=== PATIENT | female | born 1990 | race Caucasian/White ===

== ENCOUNTER → 2022-07-26 | Outpatient (CLI) | payer OTHER ==
--- NOTE | 2022-07-27 06:00 | MR ---
EXAMINATION TYPE: MR ankle RT wo con DATE OF EXAM: 07/26/2022 COMPARISON: None HISTORY: Pain Multiplanar multiecho imaging of the right ankle with no contrast. Ankle mortise is anatomic. Plantar fascia is intact. The medial and lateral flexor tendons appear in tact. Collateral ligaments are intact. There is slight increased ankle joint fluid. There is linear d efect in the posterior calcaneus from previous Achilles tendon repair. There is slight thickening of the inferior Achilles tendon. No significant increase fluid. IMPRESSION: Slight thickening of the Achilles tendon inferiorly consistent with previous tear and scarring. Previ ous surgery. Slight increased ankle joint fluid is consistent with some synovitis. No fracture seen.
== END | disposition home or self-care (01) ==
LOC: RADMRIMAIN 07:37
PROVIDERS: ATTEND Podiatrist
DX: M67.873 Other specified disorders of tendon, right ankle and foot (principal)